=== PATIENT | female | born 1975 | race Caucasian/White ===

== ENCOUNTER 2019-05-03 16:55 | Emergency (ER) | payer MEDICAID ==
[~2019-05-03] VITALS: Ht 160 cm; Wt 72.6 kg
[~2019-05-03 16:55] MED LIST: HYDROCODON-ACE1 EAC7 PO; KEFLEX500 MG PO
[2019-05-03 17:28] LABS: URINE BILIRUBIN NEGATIVE (Negative); URINE BLOOD NEGATIVE (Negative); URINE CLARITY CLEAR; URINE COLOR YELLOW; URINE GLUCOSE-RANDOM NEGATIVE (Negative); URINE KETONES NEGATIVE (Negative); URINE LEUKOCYTES-REFLEX NEGATIVE (Negative); URINE NITRITE-REFLEX NEGATIVE (Negative); URINE PROTEIN NEGATIVE (Negative); URINE SPECIFIC GRAVITY <= 1.005 (1.005-1.030); URINE UROBILINOGEN 0.2 E.U./dl (0.2-1.0)
[2019-05-03 17:35] LABS: AMP/METHAMP POSITIVE (Negative); BARBITURATES Negative (Negative); BENZODIAZEPINES Negative (Negative); COCAINE Negative (Negative); METHADONE Negative (Negative); OPIATES Negative (Negative); PCP Negative (Negative); THC Negative (Negative)
[2019-05-03 18:06] LABS: ABSOLUTE EOSINOPHILS 0.1 thou/uL (0.0-0.7); ABSOLUTE LYMPHOCYTES 1.5 thou/uL (0.8-5.3); ABSOLUTE MONOCYTES 1.2 thou/uL (0.0-1.2); ABSOLUTE NEUTROPHILS 11.9 thou/uL (1.6-8.1); BASOPHILS 0.3 %; EOSINOPHILS 0.4 %; HEMATOCRIT 41.6 % (37.0-47.0); HEMOGLOBIN 14.4 gm/dL (12.0-15.0); LYMPHOCYTES 10.4 %; MCH 29.9 pg (26.0-34.0); MCHC 34.5 g/dL (28.0-37.0); MCV 86.6 fL (80.0-100.0); MONOCYTES 8.4 %; MPV 9.3 fl. (7.2-11.1); NUCLEATED RBCS 0 /100WBC; PLATELET COUNT* 250 thou/uL (150-400); POLYS 80.5 %; RDW-CV 12.8 % (10.5-14.5); WBC 14.7 thou/uL (4.0-11.0)
[2019-05-03 18:36] LABS: CALCIUM 8.9 mg/dL (8.5-10.1); CREATININE 0.9 mg/dL (0.6-1.3)
[2019-05-03 18:37] LABS: POTASSIUM 2.7 mmol/L (3.5-5.1)
[2019-05-03 18:41] LABS: TOTAL BILIRUBIN 0.3 mg/dL (<0.1-1.0); TOTAL PROTEIN 7.6 g/dL (6.4-8.2)
[2019-05-03] MEDS ORDERED: POTASSIUM20 PO (19:28)
[2019-05-03 19:30] VITALS: BP 142/98
[2019-05-05 07:08] LABS: HEPATITIS B SURFACE AG Negative (Negative)
== END 2019-05-03 19:43 ==
LOC: M.ERS 16:55
PROVIDERS: Personal Emergency Response Attendant
DX: F15.10 Other stimulant abuse, uncomplicated (principal)